=== PATIENT | male | born 1975 | race Hispanic/Latino ===

== ENCOUNTER 2016-09-27 19:23 | Emergency (ER) | payer SELFPAY ==
[2016-09-27] MEDS ORDERED: Sulfameth/Trimethoprim DS 800-160mg TAB ONE (19:55)
[2016-09-27] MEDS ORDERED: Triple Antibiotic Oint 1 GM Packet ONE (19:55)
== END 2016-09-27 20:10 | disposition home or self-care (01) ==
LOC: MADERS 19:23
DX: T21.16XA Burn of first degree of male genital region, initial encounter (principal); F17.210 Nicotine dependence, cigarettes, uncomplicated; X30.XXXA Exposure to excessive natural heat, initial encounter
CPT/HCPCS: 99283